=== PATIENT | female | born 1975 | race Caucasian/White ===

== ENCOUNTER 2018-05-06 19:04 | Emergency (ER) | payer OTHER ==
[~2018-05-06] VITALS: Ht 180.3 cm; Wt 79.4 kg
[2018-05-06] MEDS ORDERED: LOSARTAN POTAS100 MG (19:18)
[2018-05-06] MEDS ORDERED: CIPRO500 MG PO (22:03)
[2018-05-06] MEDS ORDERED: ZANTAC300 MG PO (22:09)
[2018-05-06] MEDS ORDERED: LOSARTAN POTAS100 MG PO (22:09)
[2018-05-06] MEDS ORDERED: PROTONIX40 MG PO (22:09)
[2018-05-06] MEDS ORDERED: FLONASE ALLERG9.9 ML NASAL (22:09)
== END 2018-05-06 22:29 | disposition home or self-care (01) ==
LOC: ER 19:04
DX: J06.9 Acute upper respiratory infection, unspecified (principal)